=== PATIENT | female | born 1985 | race Hispanic/Latino ===

== ENCOUNTER 2018-04-17 13:07 | Outpatient (CLI) | payer BC ==
--- NOTE | 2018-04-17 15:41 | ULT ---
RIGHT BREAST ULTRASOUND: Date: 04/17/18 HISTORY: 32-year-old female with palpable right breast abnormality at the 12 o'clock position. FINDINGS: Correlation made with mammogram from same date. Sonographic evaluation of the region of palpable concern at the 12 o'clock position of the right [address] demonstrates no abnormality. IMPRESSION: BIRADS Category 2 - Benign findings. Return to age-appropriate screening based on risk factors. Further evaluation (including biopsy) should be based on clinical findings/suspicion. POS: [facility]
== END 2018-04-17 13:08 | disposition home or self-care (01) ==
LOC: BICMAMMO 13:07
PROVIDERS: ATTEND Family Medicine
DX: N63.10 Unspecified lump in the right breast, unspecified quadrant (principal)
CPT/HCPCS: 77066; G0279

== ENCOUNTER 2019-09-25 19:11 | Emergency (ER) | payer BC ==
--- NOTE | 2019-09-25 20:23 | RAD ---
RIGHT TIBIA AND FIBULA TWO VIEW: 09/25/19 HISTORY: Tripped and fell. COMPARISON: None. FINDINGS: No fracture. No malalignment. Mild pretibial soft tissue swelling. IMPRESSION: Pretibial soft tissue contusion without underlying osseous abnormality. POS: HOME
== END 2019-09-25 20:32 | disposition home or self-care (01) ==
LOC: ERS 19:11
DX: S80.11XA Contusion of right lower leg, initial encounter (principal); W10.9XXA Fall (on) (from) unspecified stairs and steps, initial encounter

== ENCOUNTER 2022-03-10 14:38 | Emergency (ER) | payer BC ==
[2022-03-10] MEDS ORDERED: Acetaminophen 500 MG TAB ONE (15:29)
[2022-03-10] MEDS ORDERED: diphenhydrAMINE 50 MG/ML VIAL ONE (15:34)
[2022-03-10] MEDS ORDERED: Metoclopramide 10 MG/10 ML UDCUP ONE (15:34)
[2022-03-10] MEDS ORDERED: Ketorolac Tromethamine 30 MG/ML VIAL ONE (15:34)
[2022-03-10] MEDS ORDERED: Dexamethasone 10 MG/ML VIAL ONE (15:34)
[2022-03-10] MEDS ORDERED: Metoclopramide HCl 10 MG/2 ML VIAL ONE (15:35)
== END 2022-03-10 17:15 | disposition home or self-care (01) ==
LOC: ERS 14:38
DX: R51.9 Headache, unspecified (principal); E11.9 Type 2 diabetes mellitus without complications; K21.9 Gastro-esophageal reflux disease without esophagitis; Z79.899 Other long term (current) drug therapy
CPT/HCPCS: 70450; 96365; 96375; J1100; J1200; J1885; J2765